=== PATIENT | male | born 1990 | race African-American/Black ===

== ENCOUNTER 2018-04-07 21:00 | Emergency (ER) | payer SELFPAY ==
[~2018-04-07] VITALS: Ht 182.9 cm; Wt 90.7 kg
[2018-04-07 21:10] VITALS: BP 145/95
--- NOTE | 2018-04-07 21:27 | Emergency Room Report ---
History of Present Illness General Chief Complaint: Medical Clearance Source: Patient, EMS Present Illness HPI This is 27-year-old male brought in by EMS with kimberly for medical clearance. Patient was noted to have lacerations to both hands. The patient states he is left-hand dominant. He denies any foreign body. He denies any numbness or tingling to his extremities. He denies recent tetanus vaccine. Allergies: Coded Allergies: No Known Allergies (Unverified , 04/07/18) Patient History Past Medical History: see triage record Reviewed Nursing Documentation: PMH: Agreed; PSxH: Agreed Nursing Documentation-PMH Past Medical History: No History, Except For Hx Hypertension: Yes Hx Diabetes: Yes Review of Systems All Other Systems: negative except mentioned in HPI Physical Exam Vital Signs Date Time Temp Pulse Resp B/P (MAP) Pulse Ox O2 Delivery O2 Flow Rate FiO2 04/07/18 21:02 97.9 90 18 142/92 98 Room Air General Appearance: well appearing, no apparent distress, alert, GCS 15 Head: normocephalic, atraumatic ENT: hearing grossly normal, normal voice Neck: full range of motion, supple Respiratory: no respiratory distress, speaking full sentences Musculoskeletal: normal inspection, normal range of motion, other - normal hand function and sensation bilaterally Neurologic: normal inspection, alert, oriented x3, normal gait Psychiatric: mood/affect normal Skin: no rash, laceration - laceration to right hand dorsum1 cm , left forearm volar surface 2cm, bilateral small lacerations less than 1 cm Procedures Laceration/Wound Repair Laceration/Wound Repair #1: Consent: Verbal Wound Location: upper extremity Wound's Depth, Shape: linear Wound Length (cm): 1 Wound Explored: clean Irrigated w/ Saline (ccs): 20 Betadine Prep?: Yes Anesthesia: Lidocaine w/ Epi Volume Anesthetic (ccs): 4 Wound Debrided: minimal Wound Repaired With: sutures Suture Size/Type: 4:0 Number of Sutures: 4 Layer Closure?: No Patient Tolerated: Well Complications: None Laceration/Wound Repair #2: Consent: Verbal Wound's Depth, Shape: linear Wound Length (cm): 2 Wound Explored: clean Irrigated w/ Saline (ccs): 20 Betadine Prep?: Yes Anesthesia: Lidocaine w/ Epi Suture Size/Type: 4:0, other - g Number of Sutures: 5 Deep Layer Suture Size/Type: gut Patient Tolerated: Well Complications: None Medical Decision Making Diagnostic Impression: Primary Impression: Laceration ER Course Patient presented for laceration. Differential diagnoses included foreign body , nerve injury, arterial injury among others. Imaging studies were ordered to rule out foreign body. Patients lacerations were irrigated and closed with absorbable suture. Patient was medically cleared for booking. Last Vital Signs Date Time Temp Pulse Resp B/P (MAP) Pulse Ox O2 Delivery O2 Flow Rate FiO2 04/07/18 21:02 97.9 90 18 142/92 98 Room Air Status: improved Disposition: D/C TO LAW ENFORCEMENT IN [facility]UST Condition: Stable Peterson Murry MD Apr 07, 2018 21:27
[2018-04-07] MEDS ORDERED: Tetanus/Diptheria/Pertussis Vaccine 0.5ml Syr IM ONE (21:30)
[2018-04-07] MEDS ORDERED: Bacitracin Oint UD TOPIC ONE ×3 (22:27→22:30)
[2018-04-07] MEDS ORDERED: CEPHALEXIN500 MG ORAL (22:29)
[2018-04-07 22:40] VITALS: BP 138/87
--- NOTE | 2018-04-08 11:51 | Diagnostic Imaging Report ---
Indication: Right hand pain Findings: 3 views of the right hand were obtained. Normal bony mineralization and alignment are demonstrated. No acute fractures, erosions, or periosteal reaction are seen. Soft tissues are unremarkable. Impression: No acute findings.
--- NOTE | 2018-04-08 11:52 | Diagnostic Imaging Report ---
Indication: Forearm pain Findings: 2 views of the left forearm were obtained. No acute fractures, malalignment, erosions or periostitis are identified. Bone mineralization is within normal limits. There is soft tissue swelling at the wrist and forearm Impression: Negative for acute injury.
== END 2018-04-07 23:35 | disposition home or self-care (01) ==
LOC: EDBD 21:00 → EMR 21:17
DX: S61.411A Laceration without foreign body of right hand, initial encounter (principal); S61.512A Laceration without foreign body of left wrist, initial encounter; W25.XXXA Contact with sharp glass, initial encounter; Y93.89 Activity, other specified; Y92.099 Unspecified place in other non-institutional residence as the place of occurrence of the external cause; E11.9 Type 2 diabetes mellitus without complications; I10 Essential (primary) hypertension; Z23 Encounter for immunization
CPT/HCPCS: 90471; 90715; 99284